=== PATIENT | female | born 1975 | race Two or more races ===

== ENCOUNTER 2018-08-16 03:07 | Emergency (ER) | payer MEDICAID ==
[~2018-08-16] VITALS: Ht 165.1 cm; Wt 49.9 kg
[~2018-08-16 03:07] MED LIST: LORA-205
[2018-08-16] MEDS ORDERED: SODIUM CHLORIDE 0.9% 1,000 ML IV ONE (05:00)
[2018-08-16 05:28] LABS: Urine Pregnacy Test Negative (Negative)
[2018-08-16 05:29] LABS: Urine Bacteria NONE SEEN /hpf (None Seen); Urine Blood Negative /uL (Negative); Urine Specific Gravity 1.002 (1.001-1.035); Urine WBC 1 /hpf (0 - 5)
[2018-08-16] MEDS ORDERED: LORazepam 2MG/ML-1ML VIAL IV ONE (05:30)
[2018-08-16] MEDS ORDERED: ONDANSETRON HCL 4 MG/2 ML VIAL IV ONE (05:30)
[2018-08-16 05:37] LABS: Amphetamine Screen, Urine NEGATIVE (NEGATIVE); Barbiturate Scree,Urine NEGATIVE (NEGATIVE); Benzodiazephine Screen, Urine NEGATIVE (NEGATIVE); Cannabinoid Screen, Urine NEGATIVE (NEGATIVE); Cocaine Screen, Urine NEGATIVE (NEGATIVE); Phencyclidine Screen, Urine NEGATIVE (NEGATIVE)
[2018-08-16 05:42] LABS: Basophils # (auto) 0 uL; Basophils % (auto) 0.5 % (0.0-2.0); Eosinophils # (auto) 0 uL; Hematocrit 35.4 % (36.0-46.0); Hemoglobin 11.6 g/dL (12.2-16.2); Lymphocytes # (auto) 0.9 uL; Lymphocytes % (auto) 29.2 % (10.0-50.0); Mean Corpuscular Hemoglobin 27.4 pg (28.0-32.0); Mean Corpuscular Hgb Conc. 32.8 g/dL (32.0-36.0); Mean Corpuscular Volume 83.4 fL (80.0-100.0); Monocytes # (auto) 0.3 uL; Monocytes % (auto) 10.5 % (0.0-12.0); Neutrophils # (auto) 1.7 uL; Neutrophils % (auto) 58.8 % (37.0-80.0); Nucleated Red Blood Cells % 0.1 %; Platelet Count (auto) 50 10^3/uL (140-450); Red Blood Cells 4.25 10^6/uL (4.0-5.20)
[2018-08-16 05:43] LABS: Red Cell Distribution Width 22.1 % (11.8-14.3)
[2018-08-16 05:46] LABS: Opiate Scree,Urine NEGATIVE (NEGATIVE)
[2018-08-16 05:51] LABS: INR 1.3 (0.9-1.15); Partial Thromboplastin Time 32.2 sec (23.64-32.05)
[2018-08-16 05:54] LABS: Alanine Aminotransferase 67 U/L (13-56); Albumin 3.2 g/dL (3.4-5.0); Anion Gap 14 (5-15); Aspartate Aminotransferase 174 U/L (15-37); BUN/Creatinine Ratio 7.3; Blood Urea Nitrogen 4 mg/dL (7-18); Calcium 7.4 mg/dL (8.5-10.1); Carbon Dioxide 23 mmol/L (21-32); Chloride 112 mmol/L (98-107); GFR African American 154 mL/min; GFR Non-African American 127 mL/min; Glucose 114 mg/dL (74-106); Sodium 149 mmol/L (136-145)
[2018-08-16 06:12] LABS: Blood Alcohol 492.1 mg/dL (0-5)
[2018-08-16 06:13] LABS: Alkaline Phosphatase 272 U/L (45-117); Bilirubin, Total 1.3 mg/dL (0.2-1.0); Total Protein 7.7 g/dL (6.4-8.2)
[2018-08-16 06:15] LABS: Potassium 2.9 mmol/L (3.5-5.1)
[2018-08-16] MEDS ORDERED: SODIUM CHLORIDE 0.9% 1,000 ML IVB ONE (06:57)
[2018-08-16] MEDS ORDERED: POTASSIUM EFFERVESENT TAB 25 MEQ PO ONE (07:00)
[2018-08-16] MEDS ORDERED: FOLIC ACID 1 MG, MULTIPLE VITAMIN 10 ML, MAGNESIUM SULF SDV 50% 8 MEQ, THIAMINE INJ 100... INJ ONE ×5 (08:00)
[2018-08-16 11:58] VITALS: BP 106/65
[2018-08-16] MEDS ORDERED: PANTOPRAZOLE 40 MG TAB PO ONE (12:30)
[2018-08-16] MEDS ORDERED: TETANUS-DIPTH-ACEL PERTUSSIS 0.5ML SYRG IM ONE (13:15)
== END 2018-08-16 13:32 | disposition home or self-care (01) ==
LOC: EDBD 03:07 → ER 03:13
DX: S02.2XXA Fracture of nasal bones, initial encounter for closed fracture (principal); S16.1XXA Strain of muscle, fascia and tendon at neck level, initial encounter; S30.1XXA Contusion of abdominal wall, initial encounter; S00.83XA Contusion of other part of head, initial encounter; K29.20 Alcoholic gastritis without bleeding; E87.6 Hypokalemia; E46 Unspecified protein-calorie malnutrition; R74.8 Abnormal levels of other serum enzymes; D69.6 Thrombocytopenia, unspecified; K74.60 Unspecified cirrhosis of liver; F10.229 Alcohol dependence with intoxication, unspecified; N39.0 Urinary tract infection, site not specified; F12.90 Cannabis use, unspecified, uncomplicated; Z68.1 Body mass index [BMI] 19.9 or less, adult; W18.39XA Other fall on same level, initial encounter; Y93.89 Activity, other specified; Y99.8 Other external cause status; Y92.89 Other specified places as the place of occurrence of the external cause
CPT/HCPCS: 36415; 70450; 70486; 72125; 80053; 80307; 80320; 81001; 81025; 85025; 85610; 85730; 90471; 90715; 93005; 96361; 96365; 96375; 99284; J2060; J2405; J3411; J3475; J7030